=== PATIENT | male | born 1950 | race Caucasian/White ===

== ENCOUNTER 2023-01-02 18:33 | Inpatient (IN) | payer BC, OTHER ==
[~2023-01-02] VITALS: Ht 177.8 cm; Wt 84.8 kg
[2023-01-02 18:40] VITALS: BP_SYST 126
[2023-01-02] MEDS ORDERED: NACL 0.9% 1,000 ML IV ONE (18:45)
[2023-01-02] MEDS ORDERED: PANTOPRAZOLE SODIUM 40 MG/VIAL (PROTONIX) IVP ONE (18:45)
[2023-01-02 19:03] LABS: BASOPHILS % (AUTO) 0.2 % (0.0-2.0); EOSINOPHILS # (AUTO) 0.2 K/uL (0.0-0.4); EOSINOPHILS % (AUTO) 1.9 % (0.0-4.0); HEMATOCRIT 29.4 % (36-54); HEMOGLOBIN 10.1 g/dL (14.0-18.0); LYMPHOCYTES # (AUTO) 3.5 K/uL (1.0-5.5); LYMPHOCYTES % (AUTO) 34.4 % (20.5-51.5); MEAN CORPUSCULAR HEMOGLOBIN 32 pg (27-31); MEAN CORPUSCULAR HGB CONC 34 % (32-36); MEAN CORPUSCULAR VOLUME 94 fL (79.0-98.0); MONOCYTES # (AUTO) 0.7 K/uL (0.0-1.0); MONOCYTES % (AUTO) 6.6 % (1.7-9.3); NEUTROPHILS # (AUTO) 5.8 K/uL (1.8-7.7); NEUTROPHILS % (AUTO) 56.9 % (40.0-70.0); PLATELET COUNT (AUTO) 466 K/uL (130-430); RED BLOOD CELL COUNT(AUTO) 3.12 MIL/uL (4.2-6.2); RED CELL DISTRIBUTION WIDTH 13.4 % (9.0-15.0); WHITE BLOOD COUNT (AUTO) 10.3 K/uL (4.8-10.8)
[2023-01-02 19:09] LABS: ANION GAP 12 (5-15); CALCIUM 8.7 mg/dL (8.4-11.0); CHLORIDE 103 mmol/L (98-107); CREATININE 1.27 mg/dL (0.55-1.30); GLUCOSE 221 mg/dL (70-99); UREA NITROGEN, BLOOD 25 mg/dL (8-21)
[2023-01-02 19:16] LABS: ALANINE AMINOTRANSFERASE 25 U/L (12-78); ALBUMIN 3.4 g/dL (3.4-4.8); ASPARTATE AMINOTRANSFERASE 14 U/L (10-37); LIPASE 281 U/L (73-393); TOTAL BILIRUBIN 0.4 mg/dL (0.0-1.0)
[2023-01-02 20:16] LABS: INR 1.1 (0.80-1.20); PROTHROMBIN TIME 11.5 SECS (9.5-12.5)
[2023-01-02] MEDS ORDERED: PRO40 PO (21:44)
[2023-01-02] MEDS ORDERED: LOSA100T3 PO (21:45)
[2023-01-02] MEDS ORDERED: LIP10 PO (21:45)
[2023-01-02] MEDS ORDERED: AMLO5TAB4 PO (21:45)
[2023-01-02] MEDS ORDERED: ALLO100T PO (21:46)
[2023-01-02] MEDS ORDERED: CLOP75TA32 PO (21:46)
[2023-01-02 23:41] VITALS: BP_SYST 130
[2023-01-03 03:00] LABS: BILIRUBIN,URINE NEGATIVE (NEGATIVE); BLOOD, URINE NEGATIVE (NEGATIVE); CLARITY/URINE CLEAR (CLEAR); COLOR,URINE YELLOW (YELLOW); GLUCOSE,URINE NEGATIVE (NEGATIVE); KETONES,URINE TRACE (NEGATIVE); LEUKOCYTE ESTERASE ,URINE NEGATIVE (NEGATIVE); NITRITE, URINE NEGATIVE (NEGATIVE); PROTEIN URINE NEGATIVE (NEGATIVE); UROBILINOGEN,URINE 0.2 (0.2-1.0)
[2023-01-03 03:11] LABS: BACTERIA,URINE FEW /HPF (None Seen); RBC,URINE 0-3 /HPF (0-3); WBC,URINE 0-3 /HPF (0-3)
[2023-01-03 03:12] LABS: MUCUS,URINE None Seen /LPF (None Seen)
[2023-01-03 08:07] VITALS: BP_SYST 145
[2023-01-03 09:06] LABS: BASOPHILS % (AUTO) 0.4 % (0.0-2.0); EOSINOPHILS # (AUTO) 0.1 K/uL (0.0-0.4); EOSINOPHILS % (AUTO) 0.7 % (0.0-4.0); HEMATOCRIT 24.7 % (36-54); HEMOGLOBIN 8.4 g/dL (14.0-18.0); LYMPHOCYTES # (AUTO) 2.3 K/uL (1.0-5.5); LYMPHOCYTES % (AUTO) 20.4 % (20.5-51.5); MEAN CORPUSCULAR HEMOGLOBIN 32 pg (27-31); MEAN CORPUSCULAR HGB CONC 34 % (32-36); MEAN CORPUSCULAR VOLUME 94 fL (79.0-98.0); MONOCYTES # (AUTO) 0.8 K/uL (0.0-1.0); MONOCYTES % (AUTO) 7.5 % (1.7-9.3); NEUTROPHILS # (AUTO) 7.9 K/uL (1.8-7.7); PLATELET COUNT (AUTO) 425 K/uL (130-430); RED BLOOD CELL COUNT(AUTO) 2.65 MIL/uL (4.2-6.2); RED CELL DISTRIBUTION WIDTH 13.2 % (9.0-15.0); WHITE BLOOD COUNT (AUTO) 11.2 K/uL (4.8-10.8)
[2023-01-03 11:39] LABS: ALANINE AMINOTRANSFERASE 21 U/L (12-78); ALBUMIN 3.2 g/dL (3.4-4.8); ANION GAP 10 (5-15); ASPARTATE AMINOTRANSFERASE 14 U/L (10-37); CALCIUM 8.3 mg/dL (8.4-11.0); CHLORIDE 106 mmol/L (98-107); CREATININE 0.84 mg/dL (0.55-1.30); GLUCOSE 113 mg/dL (70-99); TOTAL BILIRUBIN 0.3 mg/dL (0.0-1.0); UREA NITROGEN, BLOOD 22 mg/dL (8-21)
[2023-01-03 11:49] VITALS: BP_SYST 135
[2023-01-03 12:56] VITALS: BP_SYST 135
[2023-01-03] MEDS ORDERED: MEPERIDINE 50 MG/ML VIAL ONE (15:47)
[2023-01-03] MEDS ORDERED: SIMETHICONE 40 MG/0.6 ML ML ONE (15:48)
[2023-01-03] MEDS: MIDAZOLAM HCL 5 MG/5 ML VIAL ONE ×4 (16:15→16:24)
[2023-01-03] MEDS ORDERED: MEPERIDINE HCL/PF 25 MG/ML DISP.SYRIN ONE (16:27)
[2023-01-03] MEDS ORDERED: PANTOPRAZOLE SODIUM 40 MG/VIAL (PROTONIX) IVP ONE (17:00)
[2023-01-03] MEDS ORDERED: BISACODYL 5 MG TABLET.DR (DULCOLAX) PO ONE (17:00)
[2023-01-03 18:00] VITALS: BP_SYST 123
[2023-01-03] MEDS ORDERED: GOLYTELY / COLYTE SOLUTION 4 LITERS PO ONE (18:00)
[2023-01-03 19:42] VITALS: BP_SYST 113
[2023-01-04] VITALS (8 sets, daily range): BP systolic 120–142
[2023-01-04] MEDS ORDERED: MIDAZOLAM HCL 5 MG/5 ML VIAL ONE (07:50)
[2023-01-04] MEDS ORDERED: fentaNYL CITRATE/PF 100 MCG/2 ML AMP ONE (07:50)
[2023-01-04 08:16] LABS: BASOPHILS % (AUTO) 0.3 % (0.0-2.0); EOSINOPHILS % (AUTO) 0.2 % (0.0-4.0); LYMPHOCYTES # (AUTO) 1.9 K/uL (1.0-5.5); LYMPHOCYTES % (AUTO) 11.5 % (20.5-51.5); MEAN CORPUSCULAR HEMOGLOBIN 32 pg (27-31); MEAN CORPUSCULAR HGB CONC 35 % (32-36); MEAN CORPUSCULAR VOLUME 91 fL (79.0-98.0); MONOCYTES # (AUTO) 1.3 K/uL (0.0-1.0); MONOCYTES % (AUTO) 7.8 % (1.7-9.3); NEUTROPHILS # (AUTO) 13.3 K/uL (1.8-7.7); NEUTROPHILS % (AUTO) 80.2 % (40.0-70.0); PLATELET COUNT (AUTO) 400 K/uL (130-430); RED BLOOD CELL COUNT(AUTO) 2.06 MIL/uL (4.2-6.2); WHITE BLOOD COUNT (AUTO) 16.6 K/uL (4.8-10.8)
[2023-01-04 08:19] LABS: HEMATOCRIT 18.7 % (36-54); HEMOGLOBIN 6.5 g/dL (14.0-18.0)
[2023-01-04 08:35] LABS: ANION GAP 9 (5-15); CHLORIDE 104 mmol/L (98-107); CREATININE 0.72 mg/dL (0.55-1.30); GLUCOSE 118 mg/dL (70-99); UREA NITROGEN, BLOOD 23 mg/dL (8-21)
[2023-01-04] MEDS: PANTOPRAZOLE SODIUM 40 MG/VIAL (PROTONIX) IVP SCH (09:33)
[2023-01-04] MEDS ORDERED: POTASSIUM CHLORIDE 20 MEQ/PKT PACKET PO ONE (13:45)
[2023-01-05 00:26] VITALS: BP_SYST 143
[2023-01-05 06:44] LABS: BASOPHILS % (AUTO) 0.5 % (0.0-2.0); EOSINOPHILS # (AUTO) 0.2 K/uL (0.0-0.4); EOSINOPHILS % (AUTO) 1.8 % (0.0-4.0); HEMOGLOBIN 7.4 g/dL (14.0-18.0); LYMPHOCYTES # (AUTO) 2.1 K/uL (1.0-5.5); LYMPHOCYTES % (AUTO) 22.9 % (20.5-51.5); MEAN CORPUSCULAR HEMOGLOBIN 31 pg (27-31); MEAN CORPUSCULAR HGB CONC 35 % (32-36); MEAN CORPUSCULAR VOLUME 90 fL (79.0-98.0); MONOCYTES # (AUTO) 0.9 K/uL (0.0-1.0); MONOCYTES % (AUTO) 9.7 % (1.7-9.3); NEUTROPHILS % (AUTO) 65.1 % (40.0-70.0); PLATELET COUNT (AUTO) 367 K/uL (130-430); RED BLOOD CELL COUNT(AUTO) 2.37 MIL/uL (4.2-6.2); RED CELL DISTRIBUTION WIDTH 15.1 % (9.0-15.0); WHITE BLOOD COUNT (AUTO) 9.3 K/uL (4.8-10.8)
[2023-01-05 06:54] LABS: ANION GAP 7 (5-15); CALCIUM 8.2 mg/dL (8.4-11.0); CHLORIDE 107 mmol/L (98-107); CREATININE 0.79 mg/dL (0.55-1.30); GLUCOSE 110 mg/dL (70-99); UREA NITROGEN, BLOOD 13 mg/dL (8-21)
[2023-01-05 08:09] VITALS: BP_SYST 120
[2023-01-05] MEDS: PANTOPRAZOLE SODIUM 40 MG/VIAL (PROTONIX) IVP SCH (08:33)
[2023-01-05 08:38] LABS: HEMATOCRIT 21.2 % (36-54)
[2023-01-05 11:30] VITALS: BP_SYST 138
[2023-01-05 16:48] VITALS: BP_SYST 122
[2023-01-05] MEDS ORDERED: EPOETIN ALFA 20,000 UNITS/ML VIAL SUBCUT SCH (17:00)
[2023-01-05 18:23] VITALS: BP_SYST 124
== END 2023-01-05 23:08 | disposition home or self-care (01) | DRG 378 ==
LOC: SED 18:33 → SMU 21:47
PROVIDERS: ADMIT Internal Medicine; ATTEND Internal Medicine
PROC: 0DB78ZX Excision of Stomach, Pylorus, Via Natural or Artificial Opening Endoscopic, Diagnostic (ICD-10-PCS; 2023-01-03)
PROC: 0DJD8ZZ Inspection of Lower Intestinal Tract, Via Natural or Artificial Opening Endoscopic (ICD-10-PCS; 2023-01-03)
PROC: 0DB58ZX Excision of Esophagus, Via Natural or Artificial Opening Endoscopic, Diagnostic (ICD-10-PCS; principal; 2023-01-03 15:15)
PROC: 30233N1 Transfusion of Nonautologous Red Blood Cells into Peripheral Vein, Percutaneous Approach (ICD-10-PCS; 2023-01-04)
DX: K57.31 Diverticulosis of large intestine without perforation or abscess with bleeding (principal); D62 Acute posthemorrhagic anemia; M10.9 Gout, unspecified; I73.9 Peripheral vascular disease, unspecified; K44.9 Diaphragmatic hernia without obstruction or gangrene; Z20.822 Contact with and (suspected) exposure to COVID-19; I10 Essential (primary) hypertension; D72.829 Elevated white blood cell count, unspecified; K21.00 Gastro-esophageal reflux disease with esophagitis, without bleeding; K29.70 Gastritis, unspecified, without bleeding; K31.7 Polyp of stomach and duodenum; K59.00 Constipation, unspecified
CPT/HCPCS: 36415; 43239; 45378; 76376; 80048; 80053; 81000; 83037; 83690; 84484; 85025; 85610-TC; 85730-TC; 86886; 86900; 86901; 86920; 87081; 88305; 88312; 88313; 93005; 96361; 96374; 99285; C9113; J0885; J2175; J2250; J3010; P9021; Q9967